=== PATIENT | female | born 1945 | race Caucasian/White ===

== ENCOUNTER 2018-07-08 09:29 | Emergency (ER) | payer MEDICARE, BC ==
[2018-07-08 09:59] VITALS: BP 148/74
--- NOTE | 2018-07-08 10:09 | UC ---
Respiratory Complaint HPI - HPI Summary HPI Summary: Pt c/o cough, malaise, sob, sinus congestion, sinus pressure and pain X 2 weeks. Pt is visiting from [place] and states she has not felt well since she arrived two weeks ago. - History of Current Complaint Chief Complaint: UCRespiratory Stated Complaint: COUGH Time Seen by Provider: 07/08/18 10:05 Hx Obtained From: Patient ?: No Onset/Duration: Gradual Onset, Lasting Weeks, Still Present, Worse Since - onset Timing: Constant Severity Initially: Mild Severity Currently: Moderate Pain Intensity: 4 Character: Cough: Nonproductive Aggravating Factors: Exertion, Deep Breaths, Recumbent Position Alleviating Factors: Nothing Associated Signs And Symptoms: Positive: URI, Nasal Congestion - Risk Factors Pulmonary Embolism Risk Factors: Recent Travel Cardiac Risk Factors: Negative Pseudomonas Risk Factors: Negative Tuberculosis Risk Factors: Negative - Allergies/Home Medications Allergies/Adverse Reactions: Allergies Allergy/AdvReac Type Severity Reaction Status Date / Time Sulfa (Sulfonamide Allergy Anaphylatic Verified 07/08/18 09:48 Antibiotics) Shock Home Medications: Home Medications Krill Oil 1 tab PO DAILY 07/08/18 [History Confirmed 07/08/18] Naproxen [Naproxen 500 MG TABS] 500 mg PO BID PRN 07/08/18 [History Confirmed ] Oxybutynin TAB* [Ditropan TAB*] 5 mg PO DAILY 07/08/18 [History Confirmed ] Turmeric Root Extract [Turmeric Curcumin] 1 tab PO DAILY 07/08/18 [History Confirmed 07/08/18] Ubidecarenone [Co Q-10] 1 tab PO DAILY 07/08/18 [History Confirmed 07/08/18] PMH/Surg Hx/FS Hx/Imm Hx Previously Healthy: No - Surgical History Surgical History: Yes Surgery Procedure, Year, and Place: Left hip, 2012. Bladder Mesh, 2008. Stomach Repair s/p ERCP, 1998. Hysterectomy, 1988 - Family History Known Family History: Negative: Cardiac Disease, Hypertension, Diabetes - Social History Occupation: Retired Lives: With Family Alcohol Use: Rare Substance Use Type: None Smoking Status (MU): Former Smoker Type: Cigarettes Amount Used/How Often: 1/7 PPD Length of Time of Smoking/Using Tobacco: 20 Years Have You Smoked in the Last Year: No When Did the Patient Quit Smoking/Using Tobacco: 1998 Review of Systems All Other Systems Reviewed And Are Negative: Yes Constitutional: Positive: Fatigue Skin: Positive: Negative Eyes: Positive: Negative ENT: Positive: Sinus Congestion Respiratory: Positive: Shortness Of Breath, Cough Cardiovascular: Positive: Negative Gastrointestinal: Positive: Negative Genitourinary: Positive: Negative Motor: Positive: Negative Neurovascular: Positive: Negative Musculoskeletal: Positive: Myalgia Neurological: Positive: Negative Psychological: Positive: Negative Is Patient Immunocompromised?: No Physical Exam Triage Information Reviewed: Yes Appearance: Ill-Appearing Vital Signs: Initial Vital Signs Temp 98.8 F 07/08/18 09:52 Pulse 95 07/08/18 09:52 Resp 19 07/08/18 09:52 BP 148/74 07/08/18 09:52 Pulse Ox 97 07/08/18 09:52 Eye Exam: Normal ENT: Positive: Nasal congestion, Hoarse voice, Sinus tenderness Dental Exam: Normal Neck exam: Normal Respiratory Exam: Other Respiratory: Positive: Decreased breath sounds Cardiovascular Exam: Normal Musculoskeletal Exam: Normal Neurological Exam: Normal Psychological Exam: Normal Skin Exam: Normal UC Diagnostic Evaluation - Laboratory O2 Sat by Pulse Oximetry: 97 Respiratory Course/Dx - Differential Dx/Diagnosis Differential Diagnosis/HQI/PQRI: Bronchitis, Influenza, Sinusitis Provider Diagnosis: Sinusitis nasal, Bronchitis Discharge - Sign-Out/Discharge Documenting (check all that apply): Patient Departure All imaging exams completed and their final reports reviewed: No Studies - Discharge Plan Condition: Stable Disposition: HOME Prescriptions: Amoxicillin PO (*) [Amoxicillin 875 MG (*)] 875 mg PO Q12H #20 tab Benzonatate CAP* [Tessalon 100 MG CAP*] 200 mg PO Q8H PRN #30 cap PRN Reason: Cough Guaifenesin/Pseudoephedrne HCl [Mucinex D ER 600-60 mg Tablet] 1 each PO Q12H # 14 tab.er.12h predniSONE TAB* [Deltasone 10 MG TAB*] 30 mg PO DAILY #12 tab Patient Education Materials: Sinusitis (ED) Referrals: [facility] [Outside] No Primary Care Phys,NOPCP [Primary Care Provider] - If Needed - Billing Disposition and Condition Condition: STABLE Disposition: Home - Attestation Statements Provider Attestation: I was available for consult. This patient was seen by the ANDREY. The patient was not presented to, seen by, or examined by me. -Baltazar
== END 2018-07-08 10:24 | disposition home or self-care (01) ==
LOC: UCCORT 09:29
DX: J32.9 Chronic sinusitis, unspecified (principal); J40 Bronchitis, not specified as acute or chronic; Z88.2 Allergy status to sulfonamides; Z87.891 Personal history of nicotine dependence
CPT/HCPCS: 99212; G0463